=== PATIENT | female | born 1960 | race Caucasian/White ===

== ENCOUNTER 2019-08-09 11:14 | Emergency (ER) | payer OTHER ==
[~2019-08-09] VITALS: Ht 172.7 cm; Wt 95.3 kg
--- NOTE | 2019-08-09 11:50 | NUR ---
Pt resting in bed, talking on the phone, awaiting to be seen by MD. RUFF noted.
--- NOTE | 2019-08-09 11:56 | NUR ---
Dr Ruiz at the bedside for MSE.
--- NOTE | 2019-08-09 11:57 | NUR ---
[employer] at the bedside speaking w/ pt.
[2019-08-09] MEDS ORDERED: ACETAMINOPHEN ES 500 MG TABLET PO ONE (12:00)
[2019-08-09] MEDS ORDERED: ACETAMINOPHEN ES 500 MG TABLET ONE (12:03)
[2019-08-09 13:31] VITALS: BP 142/80
== END 2019-08-09 13:32 | disposition home or self-care (01) ==
LOC: ER 11:14
DX: S30.0XXA Contusion of lower back and pelvis, initial encounter (principal); S70.02XA Contusion of left hip, initial encounter; Z88.2 Allergy status to sulfonamides; V03.99XA Pedestrian with other conveyance injured in collision with car, pick-up truck or van, unspecified whether traffic or nontraffic accident, initial encounter; Y93.89 Activity, other specified; Y92.89 Other specified places as the place of occurrence of the external cause; Y99.8 Other external cause status
CPT/HCPCS: 72220; A4663; A9150